=== PATIENT | female | born 1970 | race Caucasian/White ===

== ENCOUNTER 2018-02-08 10:13 | Emergency (ER) | payer SELFPAY ==
[2018-02-08] MEDS ORDERED: METHYLPREDNISOLONE PF 125MG/VIAL IVP ONE (10:18)
[2018-02-08] MEDS ORDERED: IPRATROPIUM/ALBUTEROL (0.5MG/3MG) NEB INH ONE (10:18)
--- NOTE | 2018-02-08 10:23 | Emergency Department Record ---
History of Present Illness - General Chief Complaint: Asthma Stated Complaint: ASTHMA ATTACK Time Seen by Provider: 02/08/18 10:17 Source: Patient Mode of Arrival: Ambulatory Limitations: No limitations - History of Present Illness Initial Comments: 47 yo male presents with wheezing and shortness of breath on and off the last few days. She has a significant history of asthma since childhood. She has respiratory failure 18 years ago that resulted in being placed on [facility] She does not have a PCP. She only uses albuterol prn. She is not a smoker. No fever. No productive cough. MD Complaint: "Asthma attack", Shortness of breath, Wheezing -: Hour(s) Asthma History: Childhood onset Severity: Moderate Context: Allergen exposure Associated Symptoms: None Treatments Prior to Arrival: Inhaled bronchodilator - Related Data Current Asthma Therapy: Inhaled bronchodilator Home Medications Medication Instructions Recorded Confirmed Last Taken Albuterol Sulfate [Proair Hfa] 1 - 2 puff IH .EVERY 4-6 HOURS PRN 02/08/1802/0802/08/18 Previous Rx's Medication Instructions Recorded Ipratropium Glasco [Atrovent Hfa] 200 puff IH QID #1 [email or web address] 02/08/18 Prednisone [Prednisone 20Mg] 20 mg PO BID #14 tab 02/08/18 Allergies Allergy/AdvReac Type Severity Reaction Status Date / Time No Known Drug Allergies Allergy Verified 02/08/18 10:37 Review of Systems Constitutional: Denies: Chills, Fever, Malaise, Weakness Eyes: Denies: Eye discharge ENT: Denies: Congestion, Throat pain Respiratory: Reports: Cough, Dyspnea, Wheezes. Denies: Hemoptysis Cardiovascular: Denies: Chest pain, Palpitations, Syncope Endocrine: Denies: Fatigue Gastrointestinal: Denies: Abdominal pain, Diarrhea, Nausea, Vomiting Genitourinary: Denies: Dysuria, Urgency Musculoskeletal: Denies: Arthralgia, Back pain, Myalgia Skin: Denies: Bruising, Change in color, Rash Neurological: Denies: Headache, Weakness Psychiatric: Denies: Anxiety Hematological/Lymphatic: Denies: Easy bleeding, Easy bruising Physical Exam - General General Appearance: Alert, Oriented x3, Cooperative, No acute distress Limitations: No limitations - Head Head exam: Normal inspection - Eye Eye exam: Normal appearance. negative: Conjunctival injection - ENT ENT exam: Normal exam, Mucous membranes moist Ear exam: Normal external inspection Nasal Exam: Normal inspection Mouth exam: Normal external inspection - Neck Neck exam: Normal inspection, Full ROM. negative: Tenderness - Respiratory Respiratory exam: Accessory muscle use, Decreased breath sounds, Prolonged expiratory, Wheezes. negative: Normal lung sounds bilaterally, Rhonchi - Cardiovascular Cardiovascular Exam: Regular rate, Normal rhythm, Normal heart sounds Peripheral Pulses: 2+: Radial (R), Radial (L) - GI/Abdominal GI/Abdominal exam: Soft. negative: Tenderness - Rectal Rectal exam: Deferred - exam: Deferred - Extremities Extremities exam: Normal inspection. negative: Pedal edema - Back Back exam: Reports: Normal inspection, Full ROM. Denies: Muscle spasm, Rash noted, Tenderness - Neurological Neurological exam: Alert, Normal gait, Oriented X3 - Psychiatric Psychiatric exam: Normal affect, Normal mood - Skin Skin exam: Dry, Intact, Normal color, Warm Course - Reevaluation(s) Reevaluation #1: 02/08/18 10:45 The patient is much improved after the Duoneb Air exchange and work of breathing greatly improved 02/08/18 11:07 No acute changes on the labs except K is 3.3 02/08/18 11:56 The patient continues to feel very good with significant improvement. She is requesting DC. Calm respirations. Minimal wheeze. Rx provided for Prednisone and Atrovent. She has albuterol not needing a refill We discussed reasons to return and close follow up Medical Decision Making - Lab Data Result diagrams: 02/08/18 10:24 02/08/18 10:24 Disposition Disposition: Discharge Clinical Impression: Acute asthma exacerbation Qualifiers: Asthma severity: unspecified severity Asthma persistence: unspecified Qualified Code(s): J45.901 - Unspecified asthma with (acute) exacerbation Disposition: Home, Self-Care Condition: (1) Good Instructions: Asthma (ED) Additional Instructions: Take the prescriptions provided today as directed. Call your family doctor. Call to schedule the next available appointment for a recheck. Return to ED if your symptoms worsen or if you have any new concerns. Review the final Emergency Record and test results with your doctor on follow up Prescriptions: Ipratropium Glasco [Atrovent Hfa] 200 puff IH QID #1 hfa.aer.ad Prednisone [Prednisone 20Mg] 20 mg PO BID #14 tab Forms: Patient Portal Access Time of Disposition: 12:00 Quality - Quality Measures Quality Measures: N/A - Blood Pressure Screening Does Patient Have Any of the Following: No Blood Pressure Classification: Hypertensive Reading Systolic Measurement: 141 Diastolic Measurement: 71 Screening for High Blood Pressure: < Pre-Hypertensive BP, F/U Documented > [ G8950] Pre-Hypertensive Follow-up Interventions: Referral to alternative/primary care provider.
[2018-02-08 10:30] LABS: BASO % 0.5 % (0-6); EOS % 3.5 % (0-6); GRAN % 56.9 % (47-80); HEMATOCRIT 42.4 % (35.0-47.0); HEMOGLOBIN 14.1 gm/dl (11.6-16.0); LYMPH % 30.5 % (16-45); MEAN CELL VOLUME 87.6 fl (81-97); MEAN CORPUSCULAR HEMOGLOBIN 29.1 pg (27-33); MEAN CORPUSCULAR HGB CONC 33.3 g/dl (32-36); MEAN PLATELET VOLUME 11.3 fl (7.4-10.4); MONO % 8.6 % (0-9); PLATELET COUNT 255 K/uL (130-400); RED BLOOD COUNT 4.84 M/uL (3.80-5.40); RED CELL DISTRIBUTION WIDTH 14.8 % (11.5-14.5)
[2018-02-08 10:40] LABS: BLOOD UREA NITROGEN 9 mg/dL (6-20)
[2018-02-08 10:41] LABS: CREATININE 0.7 mg/dL (0.5-0.9); EST GLOMERULAR FILTRATION RATE > 60 mL/min
[2018-02-08 10:43] LABS: GLUCOSE,RANDOM 98 mg/dL (74-109)
[2018-02-08] MEDS ORDERED: POTASSIUM CHLORIDE 20 MEQ TABLET PO ONE (11:08)
--- NOTE | 2018-02-10 22:23 | RADIOLOGY REPORT ---
EXAM: CHEST 1 VIEW HISTORY: DYSPNEA. ASTHMA HISTORY. TECHNIQUE: A single mobile upright view of the chest is obtained. COMPARISON: None. FINDINGS: The cardiomediastinal silhouette is normal in size and configuration. The pulmonary vasculature is nondilated. The lungs and pleural spaces are clear. Minor levoconvex curvature of the upper thoracic spine. IMPRESSION: NO RADIOGRAPHIC EVIDENCE OF ACUTE CARDIOPULMONARY DISEASE. JOB NUMBER: [id number] MTDD
== END 2018-02-08 12:16 | disposition home or self-care (01) ==
LOC: ER 10:13
DX: J45.901 Unspecified asthma with (acute) exacerbation (principal); R06.02 Shortness of breath
CPT/HCPCS: 71045; 80048; 85025; 94640; 96374; 99284; J2930

== ENCOUNTER 2018-12-23 08:41 | Emergency (ER) | payer MEDICAID ==
[2018-12-23] MEDS ORDERED: IPRATROPIUM/ALBUTEROL (0.5MG/3MG) NEB INH ONE (08:49)
[2018-12-23] MEDS ORDERED: METHYLPREDNISOLONE PF 125MG/VIAL IVP ONE (08:59)
[2018-12-23] MEDS ORDERED: ALBUTEROL SULFATE (0.083%) 2.5 MG/3 ML NEB INH ONE (09:01)
[2018-12-23] MEDS ORDERED: MAGNESIUM SULFATE 16 MEQ in 0.9 % SODIUM CHLORIDE 100ML 100 ML IV ONE (09:01)
[2018-12-23 09:09] LABS: ABSOLUTE NEUTROPHIL COUNT 2.92; BASO % 0.9 % (0-6); EOS % 6.9 % (0-6); GRAN % 51.5 % (47-80); HEMATOCRIT 38.5 % (35.0-47.0); HEMOGLOBIN 12.9 gm/dl (11.6-16.0); LYMPH % 29.1 % (16-45); MEAN CELL VOLUME 88.5 fl (81-97); MEAN CORPUSCULAR HEMOGLOBIN 29.7 pg (27-33); MEAN CORPUSCULAR HGB CONC 33.5 g/dl (32-36); MEAN PLATELET VOLUME 11.8 fl (7.4-10.4); MONO % 11.6 % (0-9); PLATELET COUNT 219 K/uL (130-400); RED BLOOD COUNT 4.35 M/uL (3.80-5.40); RED CELL DISTRIBUTION WIDTH 14.8 % (11.5-14.5); WHITE BLOOD COUNT W/O DIFF 5.7 K/uL (4.2-12.2)
--- NOTE | 2018-12-23 09:12 | Emergency Department Record ---
History of Present Illness - General Chief Complaint: Difficulty Breathing Stated Complaint: MARILOU Time Seen by Provider: 12/23/18 08:51 Source: Patient Mode of Arrival: Ambulatory Limitations: No limitations - History of Present Illness Initial Comments: The patient is here due to an asthma attack over the last 2 days. The MARILOU and cough started yesterday and has worsened today. She denies any CP, fever, chills, or sputum production. The patient does have a hx of severe asthma but has been well controlled over the last 19 years. She did have an admission 19 years ago where she was intubated and on ECMO. MD Complaint: "Asthma attack", Shortness of breath Onset/Timin -: Days(s) Consistency: Constant Improves With: Nothing Worsens With: Nothing Known History Of: Asthma Associated Symptoms: Denies other symptoms Treatments Prior to Arrival: Bronchodilator - Related Data Home Oxygen Therapy: No Previous Rx's Medication Instructions Recorded Prednisone [Prednisone 20Mg] 40 mg PO DAILY #8 tab 12/23/18 Allergies Allergy/AdvReac Type Severity Reaction Status Date / Time No Known Drug Allergies Allergy Verified 12/23/18 08:50 Travel Screening - Travel/Exposure Within Last 30 Days Have you traveled within the last 30 days?: No Review of Systems Constitutional: Denies: Chills, Fever, Malaise Eyes: Denies: Eye discharge ENT: Reports: Congestion Respiratory: Reports: Cough, Dyspnea. Denies: Hemoptysis Cardiovascular: Denies: Arrhythmia Endocrine: Denies: Fatigue Gastrointestinal: Denies: Nausea Genitourinary: Denies: Dysuria Musculoskeletal: Denies: Arthralgia Skin: Denies: Bruising Past Medical History - SOCIAL HISTORY Smoking Status: Never smoker Alcohol Use: None Drug Use: None - RESPIRATORY Hx Respiratory Disorders: Yes Hx Asthma: Yes Hx Bronchitis: Yes Hx Pneumonia: Yes - CARDIOVASCULAR Hx Cardio Disorders: No - NEURO Hx Neuro Disorders: No - GI Hx GI Disorders: No - Hx Genitourinary Disorders: No - ENDOCRINE Hx Endocrine Disorders: No - MUSCULOSKELETAL Hx Musculoskeletal Disorders: No - PSYCH Hx Psych Problems: No - HEMATOLOGY/ONCOLOGY Hx Hematology/Oncology Disorders: Yes Hx Blood Transfusions: Yes Hx Blood Transfusion Reaction: No Family Medical History Any Significant Family History?: No Physical Exam - General General Appearance: Alert, Oriented x3, Cooperative, Mild distress - Head Head exam: Atraumatic, Normocephalic - Eye Eye exam: Normal appearance, PERRL - ENT Throat exam: Normal inspection. negative: Tonsillar erythema, Tonsillar exudate - Neck Neck exam: Normal inspection, Full ROM. negative: Tenderness - Respiratory Respiratory exam: Accessory muscle use (mild.), Respiratory distress (mild.), Wheezes. negative: Normal lung sounds bilaterally, Rhonchi, Stridor - Cardiovascular Cardiovascular Exam: Regular rate, Normal rhythm, Normal heart sounds - GI/Abdominal GI/Abdominal exam: Soft, Normal bowel sounds. negative: Tenderness - Extremities Extremities exam: Normal inspection, Full ROM, Normal capillary refill. negative: Tenderness - Neurological Neurological exam: Alert, Normal gait. negative: Abnormal gait, Motor sensory deficit - Psychiatric Psychiatric exam: negative: Anxious - Skin Skin exam: negative: Rash Course Vital Signs 12/23/18 12/23/18 08:46 08:53 Temperature 97.9 F Pulse Rate 82 70 Respiratory 22 18 Rate Blood Pressure 141/92 Pulse Ox 96 96 - Reevaluation(s) Reevaluation #1: The patient is doing a lot better at this time. She feels "much better" and is breathing very easily and has excellent aeration on exam. 12/23/18 09:15 Reevaluation #2: The patient is doing very well at this time. She continues to improve significa ntly and now only has very minor wheezing on exam. Her lung aeration is very good and she only has minor wheezing in the lower lobes which she states is normal for her. 12/23/18 09:43 Reevaluation #3: The patient is doing very well at this time. She feels back to normal and has no cough or SOB. On exam her lungs are very clear with NO wheezing. She is to continue the Prednisone at home and to see her PCP later this week if not better. 12/23/18 10:47 Medical Decision Making - Data Complexity MDM Data: Labs Ordered and/or Reviewed, X-Ray Ordered and/or Reviewed - Lab Data Result diagrams: 12/23/18 08:55 12/23/18 08:55 - Radiology Data Radiology results: Report reviewed (CXR: Neg per Rad.) Disposition Disposition: Discharge Clinical Impression: Asthma Qualifiers: Asthma severity: moderate Asthma persistence: unspecified Asthma complication type: unspecified Qualified Code(s): J45.909 - Unspecified asthma, uncomplicated Disposition: Home, Self-Care Condition: (2) Stable Instructions: Asthma (ED) Additional Instructions: Please continue your regular medicines and continue the Prednisone tomorrow. Please see your family doctor later this week for recheck and return to the ER for any worsening symptoms. Prescriptions: Prednisone [Prednisone 20Mg] 40 mg PO DAILY #8 tab Forms: Patient Portal Access Time of Disposition: 10:50 Quality - Quality Measures Quality Measures: N/A - Blood Pressure Screening View Details: Yes Does Patient Have Any of the Following: No Blood Pressure Classification: Normal BP Reading Systolic Measurement: 118 Diastolic Measurement: 64 Screening for High Blood Pressure: < Normal BP, F/U Not Required > [G8783]
[2018-12-23 09:32] LABS: BLOOD UREA NITROGEN 7 mg/dL (6-20); CREATININE 0.5 mg/dL (0.5-0.9); EST GLOMERULAR FILTRATION RATE > 60 mL/min
[2018-12-23 09:33] LABS: TOTAL PROTEIN 6.6 g/dL (6.6-8.7)
[2018-12-23 09:35] LABS: GLUCOSE,RANDOM 109 mg/dL (74-109)
[2018-12-23 09:38] LABS: ALB/GLOB RATIO 1.6 (1.1-1.8); ALBUMIN 4.1 g/dL (4.0-5.0); ALKALINE PHOSPHATASE 44 U/L (35-104); ALT/SGPT 14 U/L (<33); AST/SGOT 13 U/L (10.0-35.0)
--- NOTE | 2018-12-25 08:11 | Emergency Department Record ---
History of Present Illness - General Chief Complaint: Difficulty Breathing Stated Complaint: MARILOU Time Seen by Provider: 12/23/18 08:51 Source: Patient Mode of Arrival: Ambulatory Limitations: No limitations - History of Present Illness Onset/Timin -: Days(s) Consistency: Constant Improves With: Nothing Worsens With: Nothing Known History Of: Asthma Associated Symptoms: Denies other symptoms Treatments Prior to Arrival: Bronchodilator - Related Data Home Oxygen Therapy: No Previous Rx's Medication Instructions Recorded Prednisone [Prednisone 20Mg] 40 mg PO DAILY #8 tab 12/23/18 Allergies Allergy/AdvReac Type Severity Reaction Status Date / Time No Known Drug Allergies Allergy Verified 12/23/18 08:50 Travel Screening - Travel/Exposure Within Last 30 Days Have you traveled within the last 30 days?: No Review of Systems Constitutional: Denies: Chills, Fever, Malaise Eyes: Denies: Eye discharge ENT: Reports: Congestion Respiratory: Reports: Cough, Dyspnea. Denies: Hemoptysis Cardiovascular: Denies: Arrhythmia Endocrine: Denies: Fatigue Gastrointestinal: Denies: Nausea Genitourinary: Denies: Dysuria Musculoskeletal: Denies: Arthralgia Skin: Denies: Bruising Past Medical History - SOCIAL HISTORY Smoking Status: Never smoker Alcohol Use: None Drug Use: None - RESPIRATORY Hx Respiratory Disorders: Yes Hx Asthma: Yes Hx Bronchitis: Yes Hx Pneumonia: Yes - CARDIOVASCULAR Hx Cardio Disorders: No - NEURO Hx Neuro Disorders: No - GI Hx GI Disorders: No - Hx Genitourinary Disorders: No - ENDOCRINE Hx Endocrine Disorders: No - MUSCULOSKELETAL Hx Musculoskeletal Disorders: No - PSYCH Hx Psych Problems: No - HEMATOLOGY/ONCOLOGY Hx Hematology/Oncology Disorders: Yes Hx Blood Transfusions: Yes Hx Blood Transfusion Reaction: No Family Medical History Any Significant Family History?: No Physical Exam - General Limitations: No limitations Course Vital Signs 12/23/18 12/23/18 12/23/18 08:46 08:53 09:37 Temperature 97.9 F Pulse Rate 82 70 Pulse Rate [ 75 Pulse Ox Probe] Respiratory 22 18 18 Rate Blood Pressure 141/92 Blood Pressure 118/61 [Left Arm] Pulse Ox 96 96 97 12/23/18 10:58 Temperature Pulse Rate 80 Pulse Rate [ Pulse Ox Probe] Respiratory 18 Rate Blood Pressure 118/64 Blood Pressure [Left Arm] Pulse Ox 98 Medical Decision Making - Lab Data Result diagrams: 12/23/18 08:55 12/23/18 08:55 Lab Results 12/23/18 12/23/18 Range/Units 08:55 08:55 WBC 5.7 (4.2-12.2) K/uL RBC 4.35 (3.80-5.40) M/uL Hgb 12.9 (11.6-16.0) gm/dl Hct 38.5 (35.0-47.0) % MCV 88.5 (81-97) fl MCH 29.7 (27-33) pg MCHC 33.5 (32-36) g/dl RDW 14.8 H (11.5-14.5) % Plt Count 219 (130-400) K/uL MPV 11.8 H (7.4-10.4) fl Gran % 51.5 (47-80) % Lymphocytes % 29.1 (16-45) % Monocytes % 11.6 H (0-9) % Eosinophils % 6.9 H (0-6) % Basophils % 0.9 (0-6) % Absolute Neutrophils 2.92 Sodium 141 (136-145) mmol/L Potassium 3.5 (3.4-4.5) mmol/L Chloride 108 H (98-107) mmol/L Carbon Dioxide 21.0 L (22-29) mmol/L Anion Gap 12.0 (7-16) BUN 7 (6-20) mg/dL Creatinine 0.5 (0.5-0.9) mg/dL Estimated GFR > 60 mL/min Random Glucose 109 (74-109) mg/dL Calcium 8.6 (8.6-10.0) mg/dL Total Bilirubin 0.40 (0.2-1.0) mg/dL AST 13 (10.0-35.0) U/L ALT 14 (<33) U/L Alkaline Phosphatase 44 (35-104) U/L Total Protein 6.6 (6.6-8.7) g/dL Albumin 4.1 (4.0-5.0) g/dL Globulin 2.5 (1.4-4.8) gm/dL Albumin/Globulin Ratio 1.6 (1.1-1.8) Disposition Clinical Impression: Asthma Qualifiers: Asthma severity: moderate Asthma persistence: unspecified Asthma complication type: unspecified Qualified Code(s): J45.909 - Unspecified asthma, uncomplicated Exacerbation of asthma Qualifiers: Asthma severity: moderate Asthma persistence: unspecified Qualified Code(s): J45.901 - Unspecified asthma with (acute) exacerbation Disposition: Home, Self-Care Condition: (2) Stable Instructions: Asthma (ED) Additional Instructions: Please continue your regular medicines and continue the Prednisone tomorrow. Please see your family doctor later this week for recheck and return to the ER for any worsening symptoms. Prescriptions: Prednisone [Prednisone 20Mg] 40 mg PO DAILY #8 tab Forms: Patient Portal Access Quality - Quality Measures Quality Measures: N/A - Blood Pressure Screening View Details: Yes Does Patient Have Any of the Following: No Blood Pressure Classification: Normal BP Reading Systolic Measurement: 118 Diastolic Measurement: 64 Screening for High Blood Pressure: < Normal BP, F/U Not Required > [G8783]
--- NOTE | 2018-12-25 10:38 | RADIOLOGY REPORT ---
STUDY: Two-view chest. 10:00 a.m. CLINICAL HISTORY: Shortness of breath. History of asthma. TECHNIQUE: PA and lateral upright views of the chest were obtained. COMPARISON: 02/08/2018. FINDINGS: The heart, mediastinum, and pulmonary vasculature are normal. There are no visible acute infiltrates or effusions. There is no pneumothorax. The bones appear intact. IMPRESSION: No acute chest pathology identified. MTDD
== END 2018-12-23 10:59 | disposition home or self-care (01) ==
LOC: ER 08:41
DX: J45.41 Moderate persistent asthma with (acute) exacerbation (principal); R06.02 Shortness of breath
CPT/HCPCS: 71046; 80053; 85025; 94640; 96374; 99284; J2930; J7613